=== PATIENT | male | born 1960 ===

== ENCOUNTER 2020-07-07 18:39 | Emergency (ER) | payer MEDICARE ==
--- NOTE | 2020-07-07 20:06 | Event Note ---
ED Screening Note Date of service: 07/07/20 Time: 20:01 ED Screening Note: Patient is a 59 yo AA male with chronic lower bilateral leg edema and cigarette smoking habit who presents to the ED with c/o acute onset persistent severe left shoulder pain after he slipped and fell down and landed on left shoulder 3 weeks ago. Patient also c/o worsening bilateral LE swelling and pain. Patient denies chest pain, dizziness, syncope, vision changes, cough, abdominal pain, back pain, vision changes, numbness, tingling or weakness of upper and lower extremities bilaterally. This initial assessment/diagnostic orders/clinical plan/treatment(s) is/are subject to change based on patients health status, clinical progression and re- assessment by fellow clinical providers in the ED. Further treatment and workup at subsequent clinical providers discretion. Patient/guardian urged not to elope from the ED as their condition may be serious if not clinically assessed and managed. Initial orders include: CBC, CMP. Troponin, BNP, CXR, left shoulder x-ray
[2020-07-07 21:08] LABS: Basophils % (Auto) 1.3 % (0.0-1.8); Eosinophils # (Auto) 0.1 K/mm3 (0.0-0.4); Eosinophils % (Auto) 2.4 % (0.0-4.3); Hemoglobin 11.8 gm/dl (11.8-15.2); Lymphocytes # (Auto) 1.8 K/mm3 (1.2-5.4); Lymphocytes % (Auto) 50.4 % (13.4-35.0); Mean Corpuscular HGB Conc 35 % (32-34); Mean Corpuscular Volume 119 fl (84-94); Monocytes # (Auto) 0.4 K/mm3 (0.0-0.8); Monocytes % (Auto) 10.4 % (0.0-7.3); Platelet Count 113 K/mm3 (140-440); Red Blood Count 2.85 M/mm3 (3.65-5.03); Red Cell Distribution Width 15.6 % (13.2-15.2)
--- NOTE | 2020-07-07 21:11 | Vascular Lab Report ---
DUPLEX DOPPLER LOWER EXTREMITY VEINS, BILATERAL INDICATION / CLINICAL INFORMATION: Pain, swollen bilateral LE: r/o DVT. TECHNIQUE: Duplex doppler imaging was performed through the veins of both lower extremities using venous xenia jacqueline and other maneuvers. COMPARISON: None available. FINDINGS: RIGHT COMMON FEMORAL VEIN: Negative. RIGHT FEMORAL VEIN: Negative. RIGHT POPLITEAL VEIN: Negative. RIGHT CALF VEINS: Negative. LEFT COMMON FEMORAL VEIN: Negative. LEFT FEMORAL VEIN: Negative. LEFT POPLITEAL VEIN: Negative. LEFT CALF VEINS: Negative. ADDITIONAL FINDINGS: None. IMPRESSION: 1. No sonographic evidence for DVT in either lower extremity. Signer Name: Alireza Archibald MD Signed: 07/07/2020 9:06 PM Workstation Name: [id number]
--- NOTE | 2020-07-07 21:11 | XRay Report ---
LEFT SHOULDER 3 VIEW(S) INDICATION / CLINICAL INFORMATION: shoulder pain s/p fall COMPARISON: None available. FINDINGS: BONES / JOINT(S): No acute fracture or subluxation. Mild degenerative arthrosis left AC joint. SOFT TISSUES: No significant abnormality. ADDITIONAL FINDINGS: None. Signer Name: Alireza Archibald MD Signed: 07/07/2020 9:07 PM [facility]station [email or web address]
--- NOTE | 2020-07-07 21:12 | XRay Report ---
CHEST 1 VIEW 07/07/2020 8:48 PM INDICATION / CLINICAL INFORMATION: dyspnea. COMPARISON: None available. FINDINGS: SUPPORT DEVICES: None. HEART / MEDIASTINUM: No significant abnormality. LUNGS / PLEURA: Scattered calcified granulomas right mid lung field. No significant pulmonary or pleu ral abnormality. No pneumothorax. ADDITIONAL FINDINGS: No significant additional findings. IMPRESSION: 1. No acute findings. 2. Prior granulomatous disease Signer Name: Alireza Archibald MD Signed: 07/07/2020 9:08 PM Workstation Name: [id number]
[2020-07-07 21:28] LABS: Alanine Aminotransferase 23 units/L (7-56); Albumin 4.5 g/dL (3.9-5); Blood Urea Nitrogen 5 mg/dL (9-20); Calcium 9.1 mg/dL (8.4-10.2); Hemolysis Index 6
[2020-07-07 21:31] LABS: BUN/Creatinine Ratio 7
--- NOTE | 2020-07-07 22:24 | Emergency Department Report ---
ED Extremity Problem HPI - General Chief complaint: Pain General Stated complaint: LEG PAIN Source: patient Mode of arrival: Wheelchair Limitations: No Limitations - History of Present Illness Initial comments: Patient is a 59 yo AA male with chronic lower bilateral leg edema and cigarette smoking habit who presents to the ED with c/o acute onset persistent severe left shoulder pain after he slipped and fell down and landed on left shoulder 3 weeks ago. Patient also c/o worsening bilateral LE swelling and pain. Patient denies chest pain, dizziness, syncope, vision changes, cough, abdominal pain, back pain, vision changes, numbness, tingling or weakness of upper and lower extremities bilaterally. MD Complaint: extremity pain (left shoulder pain; bilateral lower leg pain and swelling), extremity swelling (bilateral lower legs), joint swelling, joint paint -: Sudden, week(s) (3) Location: left (left shoulder), upper extremity (left shoulder), bilateral lower extremity (edema) History of Same: No (chronic bilateral LE edema) -: Yes myalgia, Yes arthralgia, No fever, No associated dyspnea, No associated chest pain Radiation: distal Severity scale (0 -10): 7 Quality: aching, sharp Consistency: constant Improves with: nothing Worsens with: weight bearing, walking, palpation Associated Symptoms: denies other symptoms, myalgias, arthralgias (chronic pain). denies: chest pain, shortness of breath, fever, rash - Related Data Previous Rx's Medication Instructions Recorded Last Taken Type Baclofen 20 mg PO Q12H PRN #12 tablet 07/07/20 Unknown Rx Ibuprofen [Motrin] 600 mg PO Q8H PRN #30 tab 07/07/20 Unknown Rx Allergies Allergy/AdvReac Type Severity Reaction Status Date / Time No Known Allergies Allergy Unverified 07/07/20 18:50 ED Review of Systems ROS: Stated complaint: LEG PAIN Other details as noted in HPI Constitutional: denies: chills, fever Eyes: denies: eye pain, eye discharge, vision change ENT: denies: ear pain, throat pain Respiratory: denies: cough, shortness of breath, wheezing Cardiovascular: denies: chest pain, palpitations Endocrine: no symptoms reported Gastrointestinal: denies: abdominal pain, nausea, vomiting, diarrhea Genitourinary: denies: urgency, dysuria Musculoskeletal: joint swelling, arthralgia (left shoulder; Bilateral LE edema), myalgia. denies: back pain Skin: denies: rash, lesions Neurological: denies: headache, weakness, paresthesias Psychiatric: denies: anxiety, depression Hematological/Lymphatic: denies: easy bleeding, easy bruising ED Past Medical Hx - Past Medical History Previous Medical History?: No - Surgical History Past Surgical History?: No - Medications Home Medications: Home Medications Medication Instructions Recorded Confirmed Last Taken Type Baclofen 20 mg PO Q12H PRN #12 tablet 07/07/20 Unknown Rx Ibuprofen [Motrin] 600 mg PO Q8H PRN #30 tab 07/07/20 Unknown Rx ED Physical Exam - General Limitations: No Limitations General appearance: alert, in no apparent distress - Head Head exam: Present: atraumatic, normocephalic, normal inspection - Eye Eye exam: Present: normal appearance, PERRL, EOMI Pupils: Present: normal accommodation - ENT ENT exam: Present: normal exam, normal orophraynx, mucous membranes moist, TM's normal bilaterally, normal external ear exam - Neck Neck exam: Present: normal inspection, full ROM. Absent: tenderness - Respiratory Respiratory exam: Present: normal lung sounds bilaterally. Absent: respiratory distress, wheezes, rales, rhonchi, chest wall tenderness, accessory muscle use, decreased breath sounds, prolonged expiratory - Cardiovascular Cardiovascular Exam: Present: regular rate, normal rhythm, normal heart sounds. Absent: systolic murmur, diastolic murmur, rubs, gallop - GI/Abdominal GI/Abdominal exam: Present: soft, normal bowel sounds. Absent: tenderness, guarding, rebound, hyperactive bowel sounds - Extremities Exam Extremities exam: Present: normal inspection, full ROM, tenderness (Bilateral LE 1+ edema with tenderness), normal capillary refill, pedal edema, joint swelling, calf tenderness, other (Palpable left shoulder tenderness) - Back Exam Back exam: Present: normal inspection, full ROM. Absent: tenderness, CVA tenderness (R), CVA tenderness (L), muscle spasm, paraspinal tenderness, vertebral tenderness, rash noted - Neurological Exam Neurological exam: Present: alert, oriented X3, CN II-XII intact, normal gait, reflexes normal - Psychiatric Psychiatric exam: Present: normal affect, normal mood - Skin Skin exam: Present: warm, dry, intact, normal color. Absent: rash ED Course Vital Signs 07/07/20 19:13 Temperature 99.1 F Pulse Rate 100 H Respiratory 18 Rate Blood Pressure 134/85 O2 Sat by Pulse 97 Oximetry ED Medical Decision Making - Lab Data Result diagrams: 07/07/20 20:08 07/07/20 20:08 - Radiology Data Radiology results: report reviewed, image reviewed [facility] [address] [place] [address] XRay Report Signed Patient: ESTRADA PERES MR#: [id number] : 1960 Acct:[id number] Age/Sex: 59 / M ADM Date: 07/07/20 Loc: ED Attending Dr: Ordering Physician: CONSUELO VILLARREAL Date of Service: 07/07/20 Procedure(s): XR chest 1V ap Accession Number(s): [id number] cc: CONSUELO VILLARREAL Fluoro Time In Minutes: CHEST 1 VIEW 07/07/2020 8:48 PM INDICATION / CLINICAL INFORMATION: dyspnea. COMPARISON: None available. FINDINGS: SUPPORT DEVICES: None. HEART / MEDIASTINUM: No significant abnormality. LUNGS / PLEURA: Scattered calcified granulomas right mid lung field. No significant pulmonary or pleural abnormality. No pneumothorax. ADDITIONAL FINDINGS: No significant additional findings. IMPRESSION: 1. No acute findings. 2. Prior granulomatous disease Signer Name: Alireza Archibald MD Signed: 07/07/2020 9:08 PM Workstation Name: [id number] Transcribed By: TL Dictated By: Alireza Archibald MD Electronically Authenticated By: Alireza Archibald MD Signed Date/Time: 07/07/202107 DD/ 07 TD/TT: --------- [facility] [address] [place] [address] XRay Report Signed Patient: ESTRADA PERES MR#: [id number] : 1960 Acct:[id number] Age/Sex: 59 / M ADM Date: 07/07/20 Loc: ED Attending Dr: Ordering Physician: CONSUELO VILLARREAL Date of Service: 07/07/20 Procedure(s): XR shoulder 2+V LT Accession Number(s): [id number] cc: CONSUELO VILLARREAL Fluoro Time In Minutes: LEFT SHOULDER 3 VIEW(S) INDICATION / CLINICAL INFORMATION: shoulder pain s/p fall COMPARISON: None available. FINDINGS: BONES / JOINT(S): No acute fracture or subluxation. Mild degenerative arthrosis left AC joint. SOFT TISSUES: No significant abnormality. ADDITIONAL FINDINGS: None. Signer Name: Alireza Archibald MD Signed: 07/07/2020 9:07 PM Workstation Name: [id number] Transcribed By: TL Dictated By: Alireza Archibald MD Electronically Authenticated By: Alireza Archibald MD Signed Date/Time: 07/07/202106 DD/ 05 TD/TT: [facility] [address] [place] [address] Vascular Lab Report Signed Patient: ESTRADA PERES MR#: [id number] : 1960 Acct:[id number] Age/Sex: 59 / M ADM Date: 07/07/20 Loc: ED Attending Dr: Ordering Physician: CONSUELO VILLARREAL Date of Service: 07/07/20 Procedure(s): VL venous duplex LE BILAT Accession Number(s): [id number] cc: CONSUELO VILLARREAL DUPLEX DOPPLER LOWER EXTREMITY VEINS, BILATERAL INDICATION / CLINICAL INFORMATION: Pain, swollen bilateral LE: r/o DVT. TECHNIQUE: Duplex doppler imaging was performed through the veins of both lower ex tremities using venous compression and other maneuvers. COMPARISON: None available. FINDINGS: RIGHT COMMON FEMORAL VEIN: Negative. RIGHT FEMORAL VEIN: Negative. RIGHT POPLITEAL VEIN: Negative. RIGHT CALF VEINS: Negative. LEFT COMMON FEMORAL VEIN: Negative. LEFT FEMORAL VEIN: Negative. LEFT POPLITEAL VEIN: Negative. LEFT CALF VEINS: Negative. ADDITIONAL FINDINGS: None. IMPRESSION: 1. No sonographic evidence for DVT in either lower extremity. Signer Name: Alireza Archibald MD Signed: 07/07/2020 9:06 PM Workstation Name: [id number] Transcribed By: TL Dictated By: Alireza Archibald MD Electronically Authenticated By: Alireza Archibald MD Signed Date/Time: 07/07/202105 DD/ 05 TD/TT: Print - Medical Decision Making This is a 59 yo AA male with chronic lower bilateral leg edema and cigarette smoking habit who presents to the ED with c/o acute onset persistent severe left shoulder pain after he slipped and fell down and landed on left shoulder 3 wee ks ago. Patient also c/o worsening bilateral LE swelling and pain. In the ED, patient is alert and oriented x3 and is not in any distress. Patient was treated for pain in the ED. Lab test results were reviewed and are all nonactionable. Left shoulder x-ray shows no acute fractures or subluxations. Chest x-ray shows no acute cardiopulmonary abnormalities or pneumonitis. The bilateral lower extremity Doppler ultrasound showed no sonographic evidence of DVT. On reevaluation, patient's pain is well controlled medications. Patient will discharge home on pain medications and advised to follow-up with his primary care physician in 5 to 7 days for reevaluation. Patient was advised return to the ED immediately if symptoms get worse. - Differential Diagnosis shoulder sprain; muscle spasm; muscle strain; chronic Lymphedema Critical care attestation.: If time is entered above; I have spent that time in minutes in the direct care of this critically ill patient, excluding procedure time. ED Disposition Clinical Impression: Sprain of left shoulder Qualifiers: Encounter type: initial encounter Shoulder sprain type: unspecified sprain Qualified Code(s): S43.402A - Unspecified sprain of left shoulder joint, initial encounter Lymphedema of lower extremity Qualifiers: Laterality: bilateral Qualified Code(s): I89.0 - Lymphedema, not elsewhere classified Muscle strain of left shoulder Qualifiers: Encounter type: initial encounter Qualified Code(s): S46.912A - Strain of unspecified muscle, fascia and tendon at shoulder and upper arm level, left arm, initial encounter Disposition: TO HOME OR SELFCARE Is pt being admited?: No Does the pt Need Aspirin: No Condition: Stable Instructions: Muscle Strain, [id number], Shoulder Sprain, Lymphedema Additional Instructions: The bilateral lower extremity Doppler ultrasound shows no sonographic evidence of DVT. The left shoulder x-ray shows no acute fractures or subluxations. The chest x-ray shows no acute cardiopulmonary abnormalities or pneumonitis. All lab test results were reviewed and are all nonactionable. Therefore take medication with food, drink plenty of fluids and follow-up with your primary care physician in 5 to 7 days for reevaluation or return to the ED immediately if symptoms get worse Prescriptions: Baclofen 20 mg PO Q12H PRN #12 tablet PRN Reason: Muscle Spasm Ibuprofen [Motrin] 600 mg PO Q8H PRN #30 tab PRN Reason: Pain Referrals: [facility] [Provider Group] - 7-10 days Time of Disposition: 22:30 Print Language: ITALIAN
[2020-07-08 04:38] VITALS: BP 122/72
== END 2020-07-07 23:25 | disposition home or self-care (01) ==
LOC: EDBD → ED 18:39
DX: S46.912A Strain of unspecified muscle, fascia and tendon at shoulder and upper arm level, left arm, initial encounter (principal); S43.402A Unspecified sprain of left shoulder joint, initial encounter; I89.0 Lymphedema, not elsewhere classified; Z79.899 Other long term (current) drug therapy; W01.0XXA Fall on same level from slipping, tripping and stumbling without subsequent striking against object, initial encounter; Y93.89 Activity, other specified; Y92.89 Other specified places as the place of occurrence of the external cause; Y99.8 Other external cause status
CPT/HCPCS: 36415; 71045; 80053; 83880; 84484; 85025; 93970